=== PATIENT | female | born 1950 | race Caucasian/White ===

== ENCOUNTER 2017-06-01 06:47 | Emergency (ER) | payer MEDICARE, OTHER ==
[2017-06-01 07:24] LABS: BASOPHILS 0.2 % (0-2); EOSINOPHILS 0.5 % (0-7); HEMATOCRIT 42.5 % (36.0-48.0); HEMOGLOBIN 14.4 g/dL (12-16); IMMATURE GRANULOCYTES 0.1 % (0-5); LYMPHOCYTES 17.4 % (15-50); MCH 29.8 pg (26.0-34.0); MCHC 33.9 g/dL (31.0-37.0); MEAN PLATELET VOLUME 10.1 fL (7.4-10.4); MONOCYTES 4.1 % (2-11); NEUTROPHILS 77.7 % (40-80); PLATELET COUNT 193 10x3/uL (130-400); RBC 4.83 10x6/uL (4.00-5.40); RDW 13.5 % (11.5-14.5)
[2017-06-01 07:43] LABS: ALBUMIN 3.9 g/dL (3.4-5.0); ALKALINE PHOSPHATASE 96 U/L (46-116); ALT (SGPT) 24 U/L (10-68); BILIRUBIN - TOTAL 0.38 mg/dL (0.2-1.3); CALC OSMOLALITY 277 mosm/kg (275-300); CALCIUM 8.7 mg/dL (8.5-10.1); CARBON DIOXIDE 27.5 mmol/L (21.0-32.0); CHLORIDE - SERUM 102 mmol/L (98-107); CREATININE - SERUM 0.7 mg/dL (0.6-1.3); GLUCOSE 156 mg/dL (74-106); PROTEIN - SERUM 7.4 g/dL (6.4-8.2); SODIUM 137 mmol/L (136-145); UREA NITROGEN 15 mg/dL (7-18); eGFR NON AFRICAN AMERICAN 89 mL/min (90-120)
[2017-06-01 07:47] LABS: AMYLASE - SERUM 65 U/L (25-115); CREATINE KINASE 100 UL (21-215); LIPASE 127 U/L (73-393); TROPONIN-I < 0.017 ng/mL (0.000-0.060)
== END 2017-06-01 11:02 | disposition home or self-care (01) ==
LOC: D.ER 06:47
PROVIDERS: Emergency Medicine
DX: K80.50 Calculus of bile duct without cholangitis or cholecystitis without obstruction (principal); M54.9 Dorsalgia, unspecified; R07.9 Chest pain, unspecified; R11.0 Nausea; R00.1 Bradycardia, unspecified